=== PATIENT | female | born 1985 | race Caucasian/White ===

== ENCOUNTER 2017-04-30 18:19 | Inpatient (IN) | payer OTHER ==
[~2017-04-30] VITALS: Ht 160 cm; Wt 78.0 kg
[~2017-04-30 18:19] MED LIST: FERR-252 PO; IBUP-2218 PO; PREN1SGL25 PO
[2017-04-30 18:49] VITALS: BP 94/52
[2017-04-30] MEDS ORDERED: AMPICILLIN 2,000 MG in NACL 0.9% 100 ML IV ONE (18:55)
[2017-04-30] MEDS ORDERED: MISOPROSTOL 25 MCG TAB VG PRN (18:55)
[2017-04-30] MEDS ORDERED: PROMETHAZINE 25 MG/ML VIAL IVP PRN (18:55)
[2017-04-30] MEDS ORDERED: OXYTOCIN 10 UNITS/ML VIAL IM PRN (18:55)
[2017-04-30] MEDS ORDERED: METHYLERGONOVINE 0.2 MG/ML AMP IM PRN (18:55)
[2017-04-30] MEDS ORDERED: CARBOPROST 250 MCG/ML AMP IM PRN (18:55)
[2017-04-30] MEDS ORDERED: NALBUPHINE 10 MG/ML AMP IVP PRN (18:55)
[2017-04-30] MEDS: LACTATED RINGERS 1,000 ML IV SCH (19:42)
[2017-04-30] MEDS ORDERED: AMPICILLIN 2,000 MG VIAL ONE (19:51)
[2017-04-30 19:53] LABS: APPEARANCE,URINE SL CLOUDY (CLEAR); BILIRUBIN,URINE NEGATIVE (NEGATIVE); BLOOD, URINE NEGATIVE (NEGATIVE); COLOR,URINE YELLOW (YELLOW); LEUKOCYTE ESTERASE ,URINE 2+ (NEGATIVE); NITRITE, URINE NEGATIVE (NEGATIVE); UGLUCOSE NEGATIVE (NEGATIVE)
[2017-04-30 19:57] LABS: RBC,URINE 11-20 (MOD) /HPF (0-5); WBC,URINE 80-100 /HPF (0-5)
[2017-04-30 20:02] LABS: BASOPHILS # (AUTO) 0.1 K/uL (0.00-0.22); BASOPHILS % (AUTO) 1.5 % (0.0-2.0); EOSINOPHILS # (AUTO) 0.1 K/uL (0-0.4); EOSINOPHILS % (AUTO) 0.8 % (0.0-4.0); HEMATOCRIT 36.6 % (36-48); LYMPHOCYTES # (AUTO) 1.9 K/uL (2.5-16.5); LYMPHOCYTES % (AUTO) 21.7 % (20.5-51.1); MEAN CORPUSCULAR HEMOGLOBIN 28 pg (27-31); MEAN CORPUSCULAR HGB CONC 33 g/dL (33-37); MEAN CORPUSCULAR VOLUME 86 fL (80-94); MONOCYTES # (AUTO) 0.9 K/uL (0.8-1.0); MONOCYTES % (AUTO) 9.8 % (1.7-9.3); NEUTROPHILS % (AUTO) 66.2 % (42.2-75.2); PLATELET COUNT (AUTO) 252 K/uL (140-450); RED BLOOD CELL COUNT(AUTO) 4.27 MIL/uL (4.20-5.40); RED CELL DISTRIBUTION WIDTH 19.8 % (11.6-13.7)
[2017-04-30] MEDS ORDERED: OXYTOCIN 20 UNITS in LACTATED RINGERS 1,000 ML IV SCH (20:20)
[2017-04-30] MEDS ORDERED: MISOPROSTOL 25 MCG TAB ONE (20:24)
[2017-04-30] MEDS ORDERED: AMPICILLIN 1,000 MG VIAL ONE (23:33)
[2017-05-01] MEDS ORDERED: OXYTOCIN 20 UNITS/LR PREMIX 1,000 ML IV ONE (00:38)
[2017-05-01] MEDS ORDERED: NALBUPHINE HYDROCHLORIDE 10 MG/ML VIAL ONE (02:01)
[2017-05-01] MEDS ORDERED: PROMETHAZINE 25 MG/ML VIAL ONE (02:02)
[2017-05-01] MEDS ORDERED: AMPICILLIN 1,000 MG VIAL ONE ×2 (03:39→07:35)
[2017-05-01] MEDS ORDERED: BUPIVACAINE 0.125%/NS PREMIX 250 ML ONE (03:50)
[2017-05-01] MEDS ORDERED: BUPIVACAINE 0.125%/NS PREMIX 250 ML EPI SCH (04:10)
[2017-05-01] MEDS: AMPICILLIN 1,000 MG VIAL IVP SCH ×2 (04:22)
[2017-05-01] MEDS: LACTATED RINGERS 1,000 ML IV SCH ×2 (04:49→05:17)
[2017-05-01] MEDS ORDERED: OXYTOCIN 10 UNITS/ML VIAL ONE (06:20)
[2017-05-01] MEDS ORDERED: MEASLES, MUMPS, AND RUBELLA 1 VIAL SQVAC PRN (06:25)
[2017-05-01] MEDS ORDERED: BENZOCAINE/MENTHOL 20%-0.5% 60 GM CAN TP PRN (06:25)
[2017-05-01] MEDS ORDERED: oxyCODONE/APAP 5/325 MG 1 TAB TAB PO PRN (06:25)
[2017-05-01] MEDS ORDERED: METHYLERGONOVINE 0.2 MG/ML AMP IM PRN (06:25)
[2017-05-01] MEDS ORDERED: HYDROcodone/APAP 5/325 MG 1 TAB TAB PO PRN (06:25)
[2017-05-01] MEDS ORDERED: OXYTOCIN 10 UNITS/ML VIAL IM PRN (06:25)
[2017-05-01] MEDS ORDERED: TEMAZEPAM 15 MG CAP PO PRN (06:25)
[2017-05-01] MEDS ORDERED: IBUPROFEN 800 MG TAB PO PRN (06:25)
[2017-05-01] MEDS ORDERED: DOCUSATE SOD/SENNA 50/8.6 MG 1 TAB PO SCH (21:00)
[2017-05-02 06:08] LABS: HEMATOCRIT 36.2 % (36-48); HEMOGLOBIN 12.1 g/dL (12.0-16.0)
--- NOTE | 2017-05-02 11:46 | NUR ---
PATIENT HAS BEEN SCREENED AND CATEGORIZED LOW NUTRITION RISK. PATIENT WILL BE SEEN WITHIN 7 DAYS OF ADMISSION. 05/07/[address]
[2017-05-03] MEDS ORDERED: IBUP-2218 PO (10:25)
== END 2017-05-03 21:50 | disposition home or self-care (01) | DRG 560 ==
LOC: MLD 18:19 → OBSVTOIN 18:19 → MFCC 05-01 11:30
PROVIDERS: ADMIT Obstetrics & Gynecology; ATTEND Obstetrics & Gynecology
PROC: 10E0XZZ Delivery of Products of Conception, External Approach (ICD-10-PCS; principal; 2017-05-01)
PROC: 10907ZC Drainage of Amniotic Fluid, Therapeutic from Products of Conception, Via Natural or Artificial Opening (ICD-10-PCS; 2017-05-01)
PROC: 3E033VJ Introduction of Other Hormone into Peripheral Vein, Percutaneous Approach (ICD-10-PCS; 2017-05-01)
PROC: 00HU33Z Insertion of Infusion Device into Spinal Canal, Percutaneous Approach (ICD-10-PCS; 2017-05-01)
PROC: 3E0R3BZ Introduction of Anesthetic Agent into Spinal Canal, Percutaneous Approach (ICD-10-PCS; 2017-05-01)
PROC: 3E0234Z Introduction of Serum, Toxoid and Vaccine into Muscle, Percutaneous Approach (ICD-10-PCS; 2017-05-02)
DX: O69.1XX0 Labor and delivery complicated by cord around neck, with compression, not applicable or unspecified (principal); O99.824 Streptococcus B carrier state complicating childbirth; O77.0 Labor and delivery complicated by meconium in amniotic fluid; Z37.0 Single live birth; Z3A.39 39 weeks gestation of pregnancy; Z23 Encounter for immunization
CPT/HCPCS: 36415; 51702; 59200; 59409; 81001; 85018; 85025; 86592; 86886; 86900; 86901; 87086; 90715; J0290; J2300; J2550; J2590; J3490; J7120

== ENCOUNTER 2020-10-15 10:57 | Emergency (ER) | payer OTHER ==
[~2020-10-15] VITALS: Ht 160 cm; Wt 73.9 kg
[2020-10-15 11:02] VITALS: BP 129/54
--- NOTE | 2020-10-15 11:26 | NUR ---
35/F presents to ED with c/o lightheadedness, headache and fatigue for 1 week. States symptoms have persisted and not improved, stating she is continuing to feel increasingly fatigued with no relief. Stating she recently went to donate blood and was told her Iron levels are low, stating she took Iron pills and now has black stools. Patient states intermittent 5/10 dull head pain, reports taking Tylenol with no relief, denies injury or trauma, denies blurred vision. Denies fever, chills, dysuria, states episodes of nausea.
[2020-10-15] MEDS: KETOROLAC 60 MG/2 ML VIAL IM ONE (11:35)
--- NOTE | 2020-10-15 11:45 | NUR ---
Lab bedside for blood draw.
[2020-10-15 11:55] LABS: BASOPHILS % (AUTO) 0.5 % (0.0-2.0); EOSINOPHILS % (AUTO) 0.4 % (0.0-4.0); HEMATOCRIT 35.1 % (36-48); HEMOGLOBIN 11.3 g/dL (12.0-16.0); LYMPHOCYTES # (AUTO) 1.9 K/uL (2.5-16.5); LYMPHOCYTES % (AUTO) 25.9 % (20.5-51.1); MEAN CORPUSCULAR HEMOGLOBIN 25 pg (27-31); MEAN CORPUSCULAR HGB CONC 32 g/dL (33-37); MEAN CORPUSCULAR VOLUME 78.7 fL (80-94); MONOCYTES # (AUTO) 0.7 K/uL (0.8-1.0); MONOCYTES % (AUTO) 9.2 % (1.7-9.3); NEUTROPHILS # (AUTO) 4.7 K/uL (1.8-7.7); PLATELET COUNT (AUTO) 329 K/uL (140-450); RED BLOOD CELL COUNT(AUTO) 4.47 MIL/uL (4.20-5.40); RED CELL DISTRIBUTION WIDTH 16.9 % (11.6-13.7); WHITE BLOOD COUNT (AUTO) 7.3 K/uL (4.8-10.8)
[2020-10-15 12:04] LABS: ANION GAP 12.8 (8-16); CREATININE 0.7 mg/dL (0.6-1.3); POTASSIUM 3.8 mmol/L (3.5-5.1)
[2020-10-15] MEDS ORDERED: CIPR500T4 PO (12:21)
[2020-10-15] MEDS ORDERED: IBUP-2213 PO (12:21)
--- NOTE | 2020-10-15 12:35 | NUR ---
Patient discharged with v/s stable. Written and verbal after care instructions given and explained. Patient alert, oriented and verbalized understanding of instructions. Ambulatory with steady gait. All questions addressed prior to discharge. ID band removed. Patient advised to follow up with PMD. Rx of CIPRO AND IBUPROFEN 600MG given. Patient educated on indication of medication including possible reaction and side effects. Opportunity to ask questions provided and answered.
[2020-10-15 12:36] VITALS: BP 110/55
== END 2020-10-15 12:35 | disposition home or self-care (01) ==
LOC: MED 10:57
DX: N39.0 Urinary tract infection, site not specified (principal); R51.9 Headache, unspecified; R42 Dizziness and giddiness
CPT/HCPCS: 36415; 80048; 81002; 81025; 85025; 87086; 96372; 99283; J1885